=== PATIENT | male | born 1965 | race African-American/Black ===

== ENCOUNTER 2018-05-19 07:42 | Emergency (ER) | payer OTHER ==
[~2018-05-19] VITALS: Ht 182.9 cm; Wt 90.8 kg
[2018-05-19 08:55] VITALS: BP 122/73
--- NOTE | 2018-05-19 12:03 | EKG ---
[place] [address] ELECTROCARDIOGRAM REPORT Name: AMISHAPALOMO Sandra Room: [facility] ([place], [place])#: [id number] Admission: 05/19/18 Attend Phys: Discharge: 05/19/18 Date of : 61 Report #: [id number] THIS REPORT FOR: //name// [facility] ED Test Date: 2018-05-19 Test Time: 07:47:42 Pat Name: PALOMO LION Department: Room: Gender: M Can Intake Worker: Yanna MALAVE : 1965 Requested By: Elias Araujo Order Number: [id number] MD: Juan Ann Measurements Intervals [place] Rate: 60 P: 59 KS: 191 QRS: 4 QRSD: 106 T: 41 QT: 406 QTc: 406 Interpretive Statements Sinus rhythm ST elev, probable normal early repol pattern No previous ECG available for comparison Electronically Signed On 05-19-2018 12:03:37 CDT by Juan Ann [email or web address] <ELECTRONICALLY SIGNED> By: Juan Ann MD, [facility] 05/19/18 1203 [id number] [id number] Juan Ann MD, FACC /EPI
== END 2018-05-19 08:55 | disposition home or self-care (01) ==
LOC: M.ERS 07:42
DX: R07.89 Other chest pain (principal); Z88.6 Allergy status to analgesic agent